=== PATIENT | male | born 1945 | race Caucasian/White ===

== ENCOUNTER 2021-05-13 07:00 | Inpatient (IN) ==
--- NOTE | 2021-04-12 11:03 | PAT Medication Instructions ---
Medication Instructions Date of Service April 12, 2021 Home Medications Medication Instructions Recorded colestipol 1 gram tablet (Colestid) 1 g PO BID #180 tab 12/04/20 hydrocortisone 2.5 % topical cream 1 applic [place] DAILY PRN #30 g 12/04/20 with perineal applicator (Anusol-HC) amoxicillin 875 mg-potassium 1 tab PO BID #14 tab 03/03/21 clavulanate 125 mg tablet (Augmentin) colestipol 1 gram tablet (Colestid) 1 g PO BID hydrocortisone 2.5 % topical cream with perineal applicator (Anusol-HC) 1 applic [place] DAILY PRN amoxicillin 875 mg-potassium clavulanate 125 mg tablet (Augmentin) 1 tab PO BID esomeprazole magnesium 40 mg capsule,delayed release 40 mg PO QAM ezetimibe 10 mg tablet (Zetia) 10 mg PO QAM fluticasone propionate 50 mcg/actuation nasal spray,suspension (Allergy Relief (fluticasone)) 2 spray .ROUTE .COMPLEX PRN sertraline 50 mg tablet 75 mg PO QAM Continue as directed amoxicillin 875 mg-potassium clavulanate 125 mg tablet (Augmentin) 1 tab PO BID STOP taking 48 hours before surgery colestipol 1 gram tablet (Colestid) 1 g PO BID DO NOT take the morning of surgery hydrocortisone 2.5 % topical cream with perineal applicator (Anusol-HC) 1 applic [place] DAILY PRN Take morning of surgery With a small sip of water, OTHERWISE NOTHING TO EAT OR DRINK AFTER MIDNIGHT: esomeprazole magnesium 40 mg capsule,delayed release 40 mg PO QAM ezetimibe 10 mg tablet (Zetia) 10 mg PO QAM fluticasone propionate 50 mcg/actuation nasal spray,suspension (Allergy Relief (fluticasone)) 2 spray .ROUTE .COMPLEX PRN (if needed) sertraline 50 mg tablet 75 mg PO QAM Other Notes If you have any questions please call us at [phone] or [phone] or [phone] or [phone]
--- NOTE | 2021-04-14 13:49 | Anesthesiology Consultation ---
Date of Service April 14, 2021 Assessment & Plan (1) Encounter for pre-operative examination: - COVID screening: Per assessment on 04/14/2021: Travel screen-returned from [place] 04/11/2021 for holiday gathering-all vaccinated, no known COVID-19 positive contacts or current COVID-19 related symptoms. Patient vaccinated. Surgeon arranging preop COVID testing, scheduled 05/11/2021. Awaiting results. Chart Review Chart Review: Acceptable Risk for Surgery and Patient seen in Pre Admission Testing Teaching & Discussion Pre-Anesthesia Teaching/Discussion Notes: Instructed NPO after midnight before surgery, except medications with 15 cc of water. Medication instructions provided according to the PAT guidelines. History Surgery Operation Date: 05/13/21 07:15 Proposed Procedures p Laparoscopic Robotic Assted Radical Retropubic Prostatectomy, Possible Open, Possible Pelvic Lymph Node Dissection, Possible Suprapubic Tube Placement - Raghav Champion, DO Height/Weight Height: 5 ft 10 in Weight: 86 kg Allergies Allergy/AdvReac Type Severity Reaction Status Date / Time duloxetine AdvReac headache Verified 04/12/21 09:49 washed out dizziness slurred speech Medications Home Medications Medication Instructions Recorded Confirmed Last Taken colestipol 1 gram tablet (Colestid) 1 g PO BID #180 tab 12/04/20 04/12/21 Unknown hydrocortisone 2.5 % topical cream 1 applic [place] DAILY PRN #30 g 12/04/20 04/12/21 Unknown with perineal applicator (Anusol-HC) amoxicillin 875 mg-potassium 1 tab PO BID #14 tab 03/03/21 04/12/21 Unknown clavulanate 125 mg tablet (Augmentin) esomeprazole magnesium 40 mg 40 mg PO QAM 04/12/21 04/12/21 Unknown capsule,delayed release ezetimibe 10 mg tablet (Zetia) 10 mg PO QAM 04/12/21 04/12/21 Unknown fluticasone propionate 50 2 spray .ROUTE .COMPLEX PRN 04/12/21 04/12/21 Unknown mcg/actuation nasal spray,suspension (Allergy Relief (fluticasone)) sertraline 50 mg tablet 75 mg PO QAM 04/12/21 04/12/21 Unknown Past Medical History Medical History (Updated 04/15/21 @ 13:00 by Tahira Cruz PA-C) Allergic rhinitis Anemia pt denies Arthritis Minor's esophagus controlled, stable per pt, follows with GI with endoscopy q 2 yrs Chronic scapular pain right Crohn's colitis Pt denies Depression controlled, stable per pt Fatty liver Pt unsure, reports LFTs are normal Hyperlipidemia IBS (irritable bowel syndrome) Osteoarthritis Prostate cancer PVC (premature ventricular contraction) on occasion, asymptomatic Tendinitis of right rotator cuff cortisone injection q 6 mos per pt TMJ dysfunction in 2019 PCP records, pt denies, uses mouthguard for bruxism, denies clicking or locking Patient denies h/o stroke, seizures, heart attack, heart failure, DM, HTN, blood clots or blood transfusions. Exercise / Class Metabolic Activity II 4-5 Yardwork/Stairs/Walk up hill (denies CP or SOB with 1 FOS) Past Family History Family History Brother Cerebral aneurysm Father Myocardial infarction Grandfather Myocardial infarction Mother Colorectal cancer Dyslipidemia Grandmother Cancer Daughter Non-Hodgkin lymphoma Past Surgical History Surgical History Achilles tendon rupture left with repair History of cholecystectomy History of colonoscopy History of esophagogastroduodenoscopy (EGD) History of hernia repair History of tonsillectomy History of tooth extraction Past Anesthesia History No Hx of Anesthesia Complications and No Family Hx of Anesthesia Complications History of PONV No Hx of PONV and No Hx of Motion Sickness Social History Smoking Status: Never smoker Do You Dip or Chew Tobacco: No Hx Alcohol Use: Yes Alcohol type: hard liquor alcohol intake frequency: a few times a week Hx Substance Use: No substance use type: does not use Review of Systems Snoring, denies witnessed apneas or sleep studies. Patient denies chest pain, shortness of breath, dyspnea on exertion, fever, chills, cough, wheezing, or palpitations. Physical Exam Vital Signs Vitals BP 123/69 P 73 TEMP 98.6 SP02 94% on RA RESP 16 Physical Full cervical extension range of motion without pain Full TMJ range of motion TMD 3.5 finger breaths Mallampati Score 3 Dentition: intact, several missing teeth Lungs: normal respiratory effort. Clear throughout to auscultation, no adventitious breath sounds Cardiac: regular rate and rhythm, no murmurs noted Carotid arteries: negative bruit bilat Extremities: no distal extremity edema Lab Results Anesthesia Preop Results Results Anesthesia Widget: WBC 8.39 K/uL (4.8-10.8) 04/14/21 Hgb 13.5 g/dL (14.0-18.0) L 04/14/21 Hct 39.8 % (42-52) L 04/14/21 Plt 303 K/uL (130-400) 04/14/21 Na 138 mmol/L (136-145) 04/14/21 K 3.5 mmol/L (3.5-5.1) 04/14/21 Cl 107 mmol/L (98-107) 04/14/21 CO2 23 mmol/L (21-32) 04/14/21 BUN 14 mg/dl (7-18) 04/14/21 Creat 0.92 mg/dl (0.6-1.4) 04/14/21 Glucose Level 112 mg/dl (70-99) H 04/14/21 Urine Color Dark Yellow 04/14/21 Urine Appearance Clear (Clear) 04/14/21 Urine pH 5.5 (4.5-7.5) 04/14/21 Urine Specific [place] 1.023 (1.000-1.030) 04/14/21 Urine Protein Negative (Negative) 04/14/21 Urine Glucose (UA) Negative (Negative) 04/14/21 Urine Ketones Trace (Negative) H 04/14/21 Urine Blood Negative (Negative) 04/14/21 Urine Nitrite Negative (Negative) 04/14/21 Urine Bilirubin Negative (Negative) 04/14/21 Urine Urobilinogen Negative (Negative) 04/14/21 Urine Leukocyte Esterase Negative (Negative) 04/14/21 Blood Type O Positive 04/14/21 Antibody Screen NEGATIVE 04/14/21 Testing Electrocardiogram Date: 04/14/21 Sinus rhythm with frequent PVCs, rate 76 bpm. Other Testing Chest CT 03/11/2021: IMPRESSION: 1. Multiple small solid pulmonary nodules which measure up to 4 mm, as described above. Although not highly suggestive of metastatic disease, these are indeterminate. A follow-up chest CT in 6 months to ensure stability is recommended. 2. 4 mm irregular subpleural right lower lobe nodular opacity. This may reflect scarring however should be assessed on subsequent chest CT to ensure stability. 3. No thoracic lymphadenopathy.
[~2021-05-13 07:00] MED LIST: HEPARIN SOD 5,000 UNIT/0.5 ML VIAL SQ SCH; LACTATED RINGER'S 1,000 ML IV SCH; LR 15ML/HR IV SCH; ceFAZolin 2000MG 2,000 MG/15 ML SYR IV SCH
--- NOTE | 2021-05-13 07:15 | History & Physical Report ---
Date of Service May 13, 2021 Assessment & Plan (1) Prostate cancer: Plan: Patient with high Risk prostate cancer. Risks and benefits discussed at length for procedure. These include bleeding, infection, injury to surrounding tissues or organs, and risks associated with anesthesia. Patient states understanding and agrees to proceed. Will sign consent and proceed. Plan for robot assisted laparoscopic prostatectomy and bilateral pelvic lymph node dissection. History of Present Illness Primary Care Provider: Chyeenne Osei, Patient here for procedure. No changes in medical issues. No major changes in urinary issues. Continued issues and concerns. No change in pain or discomfort. No severe fevers or chills. No chest pain or shortness of breath. Risks and benefits discussed at length for procedure. These include bleeding, infection, injury to surrounding tissues or organs, and risks associated with anesthesia. Patient and/or family states understanding and agrees to proceed. Consent and supporting information completed. Allergies Allergy/AdvReac Type Severity Reaction Status Date / Time duloxetine AdvReac headache Verified 04/12/21 09:49 washed out dizziness slurred speech Home Medications Medication Instructions Recorded Confirmed Type colestipol 1 gram tablet (Colestid) 1 g PO BID #180 tab 12/04/20 04/12/21 Rx hydrocortisone 2.5 % topical cream 1 applic [place] DAILY PRN #30 g 12/04/20 04/12/21 Rx with perineal applicator (Anusol-HC) amoxicillin 875 mg-potassium 1 tab PO BID #14 tab 03/03/21 04/12/21 Rx clavulanate 125 mg tablet (Augmentin) esomeprazole magnesium 40 mg 40 mg PO QAM 04/12/21 04/12/21 History capsule,delayed release ezetimibe 10 mg tablet (Zetia) 10 mg PO QAM 04/12/21 04/12/21 History fluticasone propionate 50 2 spray .ROUTE .COMPLEX PRN 04/12/21 04/12/21 History mcg/actuation nasal spray,suspension (Allergy Relief (fluticasone)) sertraline 50 mg tablet 75 mg PO QAM 04/12/21 04/12/21 History Past Med/Surg History Medical History Allergic rhinitis Anemia pt denies Arthritis Minor's esophagus controlled, stable per pt, follows with GI with endoscopy q 2 yrs Chronic scapular pain right Crohn's colitis Pt denies Depression controlled, stable per pt Fatty liver Pt unsure, reports LFTs are normal Hyperlipidemia IBS (irritable bowel syndrome) Osteoarthritis Prostate cancer PVC (premature ventricular contraction) on occasion, asymptomatic Tendinitis of right rotator cuff cortisone injection q 6 mos per pt TMJ dysfunction in 2019 PCP records, pt denies, uses mouthguard for bruxism, denies clicking or locking Surgical History Achilles tendon rupture left with repair History of cholecystectomy History of colonoscopy History of esophagogastroduodenoscopy (EGD) History of hernia repair History of tonsillectomy History of tooth extraction Family History Brother Cerebral aneurysm Father Myocardial infarction Grandfather Myocardial infarction Mother Colorectal cancer Dyslipidemia Grandmother Cancer Daughter Non-Hodgkin lymphoma Social History Smoking Status: Never smoker Second Hand Exposure: No; Do You Dip or Chew Tobacco: No; Tobacco Cessation Education Requested by Patient: No Hx Alcohol Use: Yes Alcohol type: hard liquor Alcohol type Comment: SCOTCH Alcohol Intake Frequency: 2-3 x/Week Hx Substance Use: No Preferred Language: German Communication Ability: Effective Visual Impairment: No Limitations Hearing Ability: Normal Rv Body Mechanic Required: No Beliefs That Will Affect Care: None marital status: Current Living Situation: Spouse current occupational status: retired How many Children do You have: 4 Other Information That Helps Us Care for You: No Feels Safe at Home: Yes Safety Concerns: Feels Safe At This Time Childhood Exposure to Second-Hand Smoke: No Diet Comment: Regular diet caffeine: Yes (Coffee) during the past year weight has: decreased > 10 lbs Dental Care, Regularly: Yes Physical Activity Frequency: Daily Seatbelt Use: always Sunscreen Use: Yes Do you think of yourself as: straight/heterosexual Assistive Devices: Glasses Review of Systems All systems reviewed & are unremarkable except as noted in HPI & below Physical Exam Physical Exam: General: Alert/Arousable. No Acute illness. . HEENT: Inspection normal. Normal inspection of face. Normal inspection of neck. Psychologic: Normal affect/No change in mentation. Respiratory: No use of accessory muscles. No respiratory changes or exacerbation or changes with tachypnea or dyspnea. Cardiovascular: No tachycardia Skin: [place] and Dry. No new rashes or visible lesions. Abdomen: Normal inspection. No guarding. PG Care Time/CCT Total # of Minutes Spent Total Time Spent with Patient: Total time spent is greater than 50% in coordination of care (as documented) at patient's floor/unit and/or counseling patient: Coding Level of Care Code None Diagnoses Prostate cancer C61
[2021-05-13] MEDS ORDERED: PROPOFOL IV EMULSION 10 MG/ML 20 ML VIAL IV ONE ×2 (08:26→09:21)
[2021-05-13] MEDS ORDERED: fentaNYL citrate 100 MCG/2 ML VIAL ONE ×3 (08:27→11:54)
[2021-05-13] MEDS ORDERED: BUPIVACAINE 0.5 % 5 MG/1 ML MPF 30ML VIAL ONE (08:34)
[2021-05-13] MEDS ORDERED: PHENYLEPHRINE 100MCG/ML 5ML SYR ONE (09:19)
[2021-05-13] MEDS ORDERED: LIDOCAINE 2% 2 ML VIAL/AMP(20MG/ML) INFIL ONE ×2 (09:21→09:26)
[2021-05-13] MEDS ORDERED: ONDANSETRON INJ 2 MG/ML 2 ML VIAL ONE (09:21)
[2021-05-13] MEDS ORDERED: ROCURONIUM BROMIDE 10 MG/ML 5 ML VIAL IV ONE ×3 (09:21→09:28)
[2021-05-13] MEDS ORDERED: DEXAMETHASONE SOD INJ 4 MG/ML VIAL ONE (09:21)
[2021-05-13] MEDS ORDERED: SURGICEL ABSORB HEMOSTAT 2IN X 14IN TOP ONE (10:53)
[2021-05-13] MEDS ORDERED: FLOSEAL HEMOSTATIC MATRIX 10ML TOP ONE (10:53)
[2021-05-13] MEDS ORDERED: PROMETHAZINE HCL 12.5 MG in SODIUM CHLORIDE 0.9% 50 ML IV PRN (11:05)
[2021-05-13] MEDS ORDERED: FLUMAZENIL 0.1 MG/1 ML 10 ML VIAL IV PRN (11:05)
[2021-05-13] MEDS ORDERED: NALOXONE HCL 0.4 MG/1 ML VIAL/CARP IV PRN (11:05)
[2021-05-13] MEDS ORDERED: ONDANSETRON INJ 2 MG/ML 2 ML VIAL IV PRN ×2 (11:05→14:46)
[2021-05-13] MEDS ORDERED: ATROPINE SULFATE 0.1 MG/ML 10ML SYR IV PRN (11:05)
[2021-05-13] MEDS ORDERED: ePHEDrine sulfate 50 MG/ML AMP IV PRN (11:05)
[2021-05-13] MEDS ORDERED: LABETALOL HCL IV 5 MG/ML 20ML IV PRN (11:05)
[2021-05-13] MEDS ORDERED: NEOSTIGMINE METHYLSULFATE 1 MG/ML 10ML VIAL ONE (11:38)
[2021-05-13] MEDS ORDERED: GLYCOPYRROLATE 0.2 MG/ML VIAL ONE (11:38)
--- NOTE | 2021-05-13 12:13 | Operative Report ---
PG Post Operative Report Pre & Post Diagnosis Operation Date: 05/13/21 08:30 Pre-Op Diagnosis: Prostate Cancer Post-Op Diagnosis: Prostate Cancer I identified the patient and participated in the time-out.: Yes Procedure Operation Date: 05/13/21 08:30 Actual Procedures p Robotic Assisted Laparoscopic Radical Retropubic Prostatectomy with bilateral Pelvic Lymph Node Dissection and extensive lysis of adhesions - Raghav Champion, DO Surgeon Raghav Champion, II, DO Tools Developer Joellen NAYLOR Estimated Blood Loss 50 Findings Consistent with Post-Op Diagnosis Significant adhesion of the omentum to the right inguinal region at site of inguinal mesh from previous hernia repair. Extensive adhesions to the sigmoid colon on the left with significant diverticular disease throughout colon. Specimens Prostate and Seminal Vesicle Left Pelvic Lymph Nodes Right Pelvic Lymph Nodes. Drains 18 Fr silicone Kang catheter. Anesthesia Type General Complications none Disposition Disposition: Recovery Room Indications Patient with Prostate Cancer. Risk and benefits were discussed at length. Patient elected to undergo robotic assisted laparoscopic Radical Prostatectomy. Description of Procedure The patient was brought to the operative suite and placed under general endotracheal intubation anesthesia in the supine position. The patient was transferred to the dorsal lithotomy position. At this point, the patient prepped and draped in the usual sterile fashion and a timeout was completed. Preoperative antibiotics of Ancef 2 grams had been given. JUAN CARLOS's and SCD's were placed on the patient's lower extremities. A catheter was placed using sterile technique. With the time out completed the patient was placed into Trendelenburg and the skin at the umbilicus was anesthetized. A small incision was made superior to the umbilicus. A Varess Needle was placed and confirmed to be in the abdominal cavity. Water drop test passed. The Abdominal cavity was insufflated to 15 mmHG. The camera port was then placed. A laparoscopic camera was placed into the port and the abdominal cavity inspected. No concerning features were noted. At this point, the skin was marked for port placement and 8mm working ports were placed. The skin was anesthetized down to fascia and an approx 1cm incision was made to place the 3 x 8mm ports. A 12mm and 5 mm elementary assistant principal ports were also placed in similar fashion under direct visualization. The patient was transferred into steep Trendelenburg position and the legs lowered. The robot was positioned and docked. The camera was placed and all trocars were positioned under direct visualization. Joellen NAYLOR was integral in port placement, camera utilization, and docking procedure. She remained in sterile attire and then proceeded to assist the remainder of the case. At this point, I transitioned to the robotic console. At this point, the sigmoid colon was mobilized superiorly and the pelvis assessed. Adhesions were freed to allow mobilization. A significant amount of adhesions were found on the left pelvic region attached to the colon with significant diverticular disease throughout colon. A significant amount of adhesions were also from the omentum to the right inguinal region attached to areas of mesh from previous hernia repair. The right anterior abdominal wall also had significant adhesion to the mesh along the medial ligament. Greater than 20 minutes required for complete lysis of adhesions. During the lysis of the adhesions on the left towards the distal sigmoid colon a small area of mucosal tear was appreciated on the colon. A 3-0 silk suture was used to oversew this area with a [id number] stitch. No other areas of concern or other issues. The peritoneum in the midline was opened between rectum and bladder and the vas deferens and seminal vesicles exposed. These were dissected with blunt technique. The vas was clipped and cut and mobilized. Cautery was used to assist dissection avoiding the tissue posteriorly near the rectum. The tissues lateral to the seminal vesicles were clipped with a hemolock and all bleeding controlled. This was taken as inferior as possible from this position. The medial umbilical ligaments were then identified and the peritoneum directly lateral on the right followed by the left was opened. Adhesions once again had to be freed along the right side due to the inguinal hernia mesh. The tissues were bluntly dissected to free the bladder's lateral attachments. This was taken down to the pubic bone and exposed the endopelvic fascia bilaterally. The medial ligaments were cut and the bladder dropped. The tissues was dissected anterior to the prostate. The endopelvic fascia on each side was then opened and the lateral edges of the prostate dissected. The Dorsal venous complex of the prostate was dissected and assessed. A 2-0 PDS suture was used to ligate the vessels. A suspension stitch was used and clipped. Electrocautery was used to cut the anterior attachments, the puboprostatic ligaments, and venous tissues. The kang was manipulated to better visual the bladder neck and dissection was taken using electrocautery. The bladder neck was opened and dissected from the prostate. The UO were identifed and dissection taken in a direction to avoid each side. The vas stump and seminal vesicles were exposed and used to assist in traction to dissect. The prostatic pedicles were better exposed. The posterior prostate was dissected. An attempt was made to limit cautery and utilize cold dissection of the lateral posterior prostate to attempt preservation of the neurovascular bundle bilaterally. Hemolock clips were utilized to clip the prostatic pedicle bilaterally. The dissection was taken to the apex of the prostate. The anterior prostate was released and the urethra exposed. Cold cutting was used to open the anterior portion and expose the catheter. This was removed and the urethra incised. The prostate was further freed and grasped and removed from the field. The entire dissection bed was inspected. Hemostatic agent was placed in the re gion. No areas of injury or bleeding was noted. Care was taken to examine the perirectal tissues. A probe was placed and no injuries or other issues were observed. The bladder neck and urethra were then approximated with a running barbed suture starting at the 5 o'clock position and moving to the 12 o'clock on each side. This was tied at the anterior portion. A leak test was completed without any evidence of issues. The right and left pelvic lymph tissue was identified in relation to the iliac vessels. Distal dissection was taken to the Node of [place]. Inferiorly the obturator vessels and nerve were identified. Lymphatic tissue within the surround fat tissue was dissected. This packet of tissues were sent for pathologic analysis and lymph node assessment. This was done for each separate side. The right side was found to be notably inflamed and had attachments to the inguinal mesh. Likely inflammation/irritation was from reaction to the mesh in this region. Hemostatic agent was placed on the exposed vessels. The entire dissection space was inspected one final time. No bleeding or injuries or areas of concern were noted. No tumor or other concerning features were noted. At this point, the robot was undocked and moved away from the patient. The patient was taken out of Trendelenberg. The port sites were all assessed laparoscopically. The endoscopic bag was moved into the midline port. The 12mm port site was closed with the Raj Price device. The other ports were assessed and no issues observed. The umbilical incision was opened further exposing fascia which was then opened in order to removed the prostate in the bag. The prostate was removed. A running PDS suture was used to close fascia. A running 3-0 Vicryl suture was used to close the subcutaneous tissues. The skin at each site was closed with yomaira. The area was cleaned and bandages placed on each incision. The patient was cleaned and bandaged, aroused from anesthesia, and transferred to the pacu in stable condition having tolerated the procedure well with no complications. I was present and participated in all aspects of the procedure. Latoya NAYLOR was critical in the portions as mentioned above. Will plan to observe postoperatively and monitor. Kang to be remain in place until followup. Plan to maintain catheter for 10 to 14 days with follow-up to discuss pathology and plan long-term management. I attest to the content of the Intraoperative Record and any orders documented therein. Any exceptions are noted below.
[2021-05-13] MEDS: fentaNYL citrate 100 MCG/2 ML VIAL IV PRN ×4 (12:27→12:47)
[2021-05-13] MEDS ORDERED: HYDROmorphone INJ 2 MG/ML SYR/VIAL ONE (12:44)
[2021-05-13 12:54] LABS: Basophils # (auto) 0.03 K/uL (0-0.2); Basophils % (auto) 0.2 %; Eosinophils # (auto) 0.03 K/uL (0-0.5); Eosinophils % (auto) 0.2 %; Hematocrit (blood only) 43.2 % (42-52); Hemoglobin 14.3 g/dL (14.0-18.0); Immature Granulocytes # (auto) 0.05 K/uL (0.00-0.02); Immature Granulocytes % (auto) 0.3 %; Lymphocytes # (auto) 0.83 K/uL (1.2-3.4); Lymphocytes % (auto) 5.4 %; Mean Corpuscular Hemoglobin 29.9 pg (25-34); Mean Corpuscular Volume 90.2 fL (80-100); Mean Platelet Volume 10.7 fL (7.4-10.4); Monocytes # (auto) 0.36 K/uL (0.11-0.59); Monocytes % (auto) 2.4 %; Neutrophils # (auto) 13.93 K/uL (1.4-6.5); Neutrophils % (auto) 91.5 %; Platelet Count 278 K/uL (130-400); RDW Coefficient of Variation 13.8 % (11.5-14.5); RDW Standard Deviation 45.5 fL (36.4-46.3); Red Blood Count 4.79 M/uL (4.7-6.1); White Blood Count 15.23 K/uL (4.8-10.8)
[2021-05-13] MEDS: HYDROmorphone INJ 0.5 MG/0.5 ML SYR IV PRN ×4 (12:56→13:40)
[2021-05-13 13:02] LABS: Mean Corpuscular Hgb Conc 33.1 g/dL (32-36)
[2021-05-13 13:11] LABS: BUN Creatinine Ratio 14.6 (10-20); Calcium 8.5 mg/dl (8.5-10.1); Creatinine Clr Calc Pharmacy 73.5 ml/min; Est GFR (African American) 95.9 ml/min; Est GFR (Non-African American) 82.7 ml/min; Potassium 3.9 mmol/L (3.5-5.1)
--- NOTE | 2021-05-13 14:02 | Anesthesiology Progress Note ---
Date of Service May 13, 2021 Anesthesia Post Procedure Vital Signs Vital Signs: Temp Pulse Resp BP Pulse Ox 05/13/21 13:54 90 14 124/83 97 05/13/21 13:44 87 15 126/81 96 05/13/21 13:34 74 14 117/78 95 05/13/21 13:24 36.5 C 86 14 127/70 95 05/13/21 13:14 36.5 C 83 16 143/86 H 95 05/13/21 13:04 36.5 C 76 14 151/86 H 95 05/13/21 12:54 96 H 14 141/78 H 95 05/13/21 12:44 36.5 C 95 H 15 131/89 96 05/13/21 12:34 36.4 C L 95 H 18 155/96 H 95 05/13/21 12:24 36.4 C L 84 18 147/74 H 98 05/13/21 12:14 36.2 C L 91 H 20 115/82 94 05/13/21 07:29 36.7 C 75 16 128/82 92 Pain Intensity Bilateral Abdomen: Pain Intensity: 4 Transfer of Care Handoff Completed per policy Notes Mental Status: alert / awake / arousable Patient Amnestic to Procedure: Yes Nausea / Vomiting: adequately controlled Pain: adequately controlled Airway Patency, RR, SpO2: stable & adequate BP & HR: stable & adequate Hydration State: stable & adequate Anesthetic Complications: no major complications apparent
[2021-05-13] MEDS ORDERED: FLUTICASONE PROPIONATE NA SPR 16 GM BTL PRN (14:46)
[2021-05-13] MEDS ORDERED: ACETAMINOPHEN 325 MG TAB PO PRN (14:46)
[2021-05-13] MEDS ORDERED: oxyCODONE HCL IR 5 MG TAB (IMMEDIATE RELEASE) PO PRN (14:46)
[2021-05-13] MEDS ORDERED: MoRPHine SULFATE 2 MG/ML CARP IV PRN (14:46)
[2021-05-13] MEDS: MoRPHine SULFATE 4 MG/ML 1 ML CARP\\VIAL IV PRN ×2 (15:09→18:38)
[2021-05-13] MEDS: ceFAZolin 2000MG 2,000 MG/15 ML SYR IV SCH (16:32)
[2021-05-13] MEDS: oxyCODONE HCL IR 5 MG TAB (IMMEDIATE RELEASE) PO PRN ×2 (16:34→20:50)
[2021-05-13] MEDS: COLESTIPOL HCL 1 GM TAB PO SCH (20:44)
[2021-05-13] MEDS: LACTATED RINGER'S 1,000 ML IV SCH (20:44)
[2021-05-13] MEDS: HEPARIN SOD 5,000 UNIT/0.5 ML VIAL SQ SCH (21:07)
[2021-05-14] MEDS: ceFAZolin 2000MG 2,000 MG/15 ML SYR IV SCH
[2021-05-14] MEDS: oxyCODONE HCL IR 5 MG TAB (IMMEDIATE RELEASE) PO PRN ×3 (01:36→12:49)
[2021-05-14] MEDS: MoRPHine SULFATE 4 MG/ML 1 ML CARP\\VIAL IV PRN (04:04)
[2021-05-14 06:05] LABS: Basophils # (auto) 0.02 K/uL (0-0.2); Basophils % (auto) 0.2 %; Eosinophils # (auto) 0.03 K/uL (0-0.5); Eosinophils % (auto) 0.3 %; Hematocrit (blood only) 38.4 % (42-52); Hemoglobin 13.1 g/dL (14.0-18.0); Immature Granulocytes # (auto) 0.03 K/uL (0.00-0.02); Immature Granulocytes % (auto) 0.3 %; Lymphocytes # (auto) 1.49 K/uL (1.2-3.4); Mean Corpuscular Hgb Conc 34.1 g/dL (32-36); Mean Corpuscular Volume 90.8 fL (80-100); Mean Platelet Volume 10.4 fL (7.4-10.4); Monocytes # (auto) 1.12 K/uL (0.11-0.59); Monocytes % (auto) 9.8 %; Neutrophils # (auto) 8.78 K/uL (1.4-6.5); Neutrophils % (auto) 76.4 %; Platelet Count 246 K/uL (130-400); RDW Coefficient of Variation 14.2 % (11.5-14.5); RDW Standard Deviation 47.5 fL (36.4-46.3); Red Blood Count 4.23 M/uL (4.7-6.1); White Blood Count 11.47 K/uL (4.8-10.8)
[2021-05-14] MEDS: LACTATED RINGER'S 1,000 ML IV SCH (06:32)
[2021-05-14 06:40] LABS: BUN Creatinine Ratio 18.3 (10-20); Calcium 8.4 mg/dl (8.5-10.1); Creatinine Clr Calc Pharmacy 92.9 ml/min; Est GFR (African American) 106.5 ml/min; Est GFR (Non-African American) 91.9 ml/min; Potassium 3.7 mmol/L (3.5-5.1)
[2021-05-14] MEDS: COLESTIPOL HCL 1 GM TAB PO SCH (07:44)
[2021-05-14] MEDS: HEPARIN SOD 5,000 UNIT/0.5 ML VIAL SQ SCH (08:30)
[2021-05-14] MEDS ORDERED: PANTOprazole 40 MG TAB PO SCH (09:00)
[2021-05-14] MEDS ORDERED: SERTRALINE HCL 50 MG TABLET PO SCH (09:00)
[2021-05-14] MEDS ORDERED: EZETIMIBE 10 MG TABLET PO SCH (09:00)
--- NOTE | 2021-05-19 13:20 | Discharge Summary ---
Date of Service May 19, 2021 Admission HPI Per Admitting Provider Patient here for procedure. No changes in medical issues. No major changes in urinary issues. Continued issues and concerns. No change in pain or discomfort. No severe fevers or chills. No chest pain or shortness of breath. Risks and benefits discussed at length for procedure. These include bleeding, infection, injury to surrounding tissues or organs, and risks associated with anesthesia. Patient and/or family states understanding and agrees to proceed. Consent and supporting information completed. Principal Diagnosis Prostate cancer Discharge Exam General: Alert/Arousable. No Acute illness. . HEENT: Inspection normal. Normal inspection of face. Normal inspection of neck. Psychologic: Normal affect/No change in mentation. Respiratory: No use of accessory muscles. No respiratory changes or exacerbation or changes with tachypnea or dyspnea. Cardiovascular: No tachycardia Skin: Dickinson and Dry. No new rashes or visible lesions. Abdomen: Appropriate tender wound clean dry and covered. : Catheter in place draining urine. Discharge Data Allergies Allergy/AdvReac Type Severity Reaction Status Date / Time duloxetine AdvReac headache Verified 05/13/21 07:21 washed out dizziness slurred speech Procedures Performed Operation Date: 05/13/21 08:30 Actual Procedures p Laparoscopic Robotic Assisted Radical Retropubic Prostatectomy, Pelvic Lymph Node Dissection - Raghav Champion, Hospital Course (1) Prostate cancer: Patient with high Risk prostate cancer. Status post robot assisted laparoscopic prostatectomy and bilateral pelvic lymph node dissection. Patient was recovering well. Tolerated catheter. Had started to ambulate. Was tolerating diet. Total Time Total Time Spent Total Time Spent (In Minutes): 5 Discharge Plan Discharge Items Patient Disposition: Home - Self-Care Reason For Visit: Prostate Cancer Discharge Diagnosis: Prostate Cancer Condition on Discharge: Good Goals: Continue to make a good recovery Activity: As commented below Activity Comment: OK to shower. OK to go for short walks. Regular diet. Kang care. Lifting: No more than 10 pounds Bathing: Keep incision dry Bathing Comment: No baths. OK to shower. Sexual Activity: Wait until after follow-up appointment Exercise/Sports: Wait until after follow-up appointment Driving/Machine Use: 14 days Weightbearing: Full weightbearing Non-emergency contact: Primary Care Provider and Surgeon Call non-emergency contact if: you have any medication questions, your temperature is above 101, your wound has increased redness and your wound pain has increased Follow-up/Referrals: Cheyenne Osei, [Primary Care Provider] - Diet: Regular Addtl Attending Provider Instructions: Empty kang bag as it fills. The catheter may leak, that is normal. OK to shower. Take a stool softener if you are constipated. Call the office with any concerns. Pending Studies at Discharge: No (None) Stand-Alone Forms: My [facility] [employer], Smoking Cessation Medications and DC Order Prescriptions: New oxycodone 5 mg capsule 5 mg PO BID PRN (Reason: pain) Qty: 30 RF: 0 Continued colestipol [Colestid] 1 gram tablet 1 g PO BID Qty: 180 RF: 1 hydrocortisone [Anusol-HC] 2.5 % cream with perineal applicator 1 applic PA DAILY PRN (Reason: hemorrhoids) Qty: 30 RF: 0 esomeprazole magnesium 40 mg capsule,delayed release(DR/EC) 40 mg PO QAM RF: 0 fluticasone propionate [Allergy Relief (fluticasone)] 50 mcg/actuation spray,suspension 2 spray .ROUTE .COMPLEX PRN (Reason: Congestion) RF: 0 sertraline 50 mg tablet 75 mg PO QAM RF: 0 ezetimibe [Zetia] 10 mg tablet 10 mg PO QAM RF: 0 No Action docusate sodium [Colace] 100 mg capsule 100 mg PO BID 14 Days Qty: 60 RF: 0 Discharge Orders: Discharge Order (Routine); Ordered 05/14/21 Ordered By: Roberto Seaman/Other Patient Handouts: Prostate Cancer Surg, Cancer Overview Admission Data Admit Date/Time: 05/13/21 12:08 Attending Provider: Raghav Champion Admit Provider: Raghav Champion Primary Care Provider: Cheyenne Osei Other Interventions: Discharge Summary Assessment (RN) Last Done: 05/14/21 12:02 Coding Level of Care Code D/C DAY MANAGEMENT <30 MINS Diagnoses Prostate cancer C61
== END 2021-05-14 13:19 | disposition home or self-care (01) | DRG 708 ==
LOC: ASU 07:00 → EDINP 12:08 → 3E 14:48
DX: F32.A Depression, unspecified; Z88.8 Allergy status to other drugs, medicaments and biological substances; C61 Malignant neoplasm of prostate; Z80.7 Family history of other malignant neoplasms of lymphoid, hematopoietic and related tissues; E78.5 Hyperlipidemia, unspecified; K57.30 Diverticulosis of large intestine without perforation or abscess without bleeding; Z20.822 Contact with and (suspected) exposure to COVID-19; K22.70 Barrett's esophagus without dysplasia; Z79.899 Other long term (current) drug therapy; Z80.0 Family history of malignant neoplasm of digestive organs; Z01.812 Encounter for preprocedural laboratory examination; K66.0 Peritoneal adhesions (postprocedural) (postinfection); Z83.438 Family history of other disorder of lipoprotein metabolism and other lipidemia